=== PATIENT | male | born 1960 | race African-American/Black ===

== ENCOUNTER 2020-09-30 16:33 | Emergency (ER) | payer OTHER ==
[2020-09-30] MEDS ORDERED: HYDROmorphone 0.5 MG/0.5 ML SYRINGE ONE (17:24)
--- NOTE | 2020-09-30 19:26 | RAD ---
RIGHT KNEE FOUR VIEWS: 09/30/20 HISTORY: Knee pain after stepping out of the tractor. There is severe arthritic changes of the knee. Marked tricompartment degenerative changes most pronou nced in the lateral and patellofemoral compartments. Small joint effusion. IMPRESSION: Marked arthritic changes of the knee. No acute injury. POS: NIKO
== END 2020-09-30 17:10 | disposition home or self-care (01) ==
LOC: MADERS 16:33
DX: S83.91XA Sprain of unspecified site of right knee, initial encounter (principal); W17.89XA Other fall from one level to another, initial encounter
CPT/HCPCS: 96372; J1170

== ENCOUNTER 2022-11-08 10:36 | Emergency (ER) | payer OTHER ==
[2022-11-08] MEDS ORDERED: Bacitracin 1 PK ONE (11:10)
== END 2022-11-08 11:17 | disposition home or self-care (01) ==
LOC: MADERS 10:36
DX: S61.210A Laceration without foreign body of right index finger without damage to nail, initial encounter (principal); I10 Essential (primary) hypertension; E11.9 Type 2 diabetes mellitus without complications; W26.9XXA Contact with unspecified sharp object(s), initial encounter
CPT/HCPCS: 99282